=== PATIENT | male | born 1985 | race Caucasian/White ===

== ENCOUNTER 2017-10-10 20:36 | Emergency (ER) | payer OTHER ==
[~2017-10-10] VITALS: Ht 177.8 cm; Wt 83.9 kg
[~2017-10-10 20:36] MED LIST: ACYCLOVIR 200200 MG PO; APAP500 PO; BACTROBAN22 GM TP; CIPRO500 MG PO; CIPROFLOXACIN500 M1 PO; ENDOCET 5-3251 EACH PO; FLAGYL500 MG PO; FLOXIN OTI0.3 %/5 ML; IBUPROFEN 200200 M1 PO; IBUPROFEN 400400 M2 PO; PERCOCET PO; PHENERGAN 25 MG25 M1 PO; UNICOMPLEX M TA1 TA1 PO; ZANTAC 150MG T150 MG PO; ZOFRAN ODT4 MG PO
[2017-10-10 20:48] VITALS: BP 145/76
[2017-10-10] MEDS ORDERED: KEFLEX500 M1 PO (20:50)
== END 2017-10-10 21:10 | disposition home or self-care (01) ==
LOC: M.ERS 20:36
DX: S61.211A Laceration without foreign body of left index finger without damage to nail, initial encounter (principal); Z88.5 Allergy status to narcotic agent; Z88.2 Allergy status to sulfonamides; W27.8XXA Contact with other nonpowered hand tool, initial encounter; Y93.89 Activity, other specified; Y92.89 Other specified places as the place of occurrence of the external cause; Y99.8 Other external cause status